=== PATIENT | female | born 1965 | race Caucasian/White ===

== ENCOUNTER 2020-07-21 08:22 | Emergency (ER) | payer BC ==
[2020-07-21] MEDS ORDERED: cefTRIAXone 2 GM in Sodium Chloride 0.9% 100 ML IV STA ×2 (09:59→10:24)
[2020-07-21] MEDS ORDERED: Doxycycline 100 MG Cap PO STA (10:00)
--- NOTE | 2020-07-21 10:04 | EDM.PDOC ---
ED HPI GENERAL MEDICAL PROBLEM - General Chief Complaint: Skin Complaint Stated Complaint: SKIN COMPLAINT/FEVER Time Seen by Provider: 07/21/20 09:02 Source of Information: Reports: Patient History Limitations: Reports: No Limitations - History of Present Illness INITIAL COMMENTS - FREE TEXT/NARRATIVE: Mrs. Chamberlain is a very pleasant 54-year-old woman with no chronic medical problems, who now presents the ED, sent over from the walk-in clinic, for a generalized rash and fever. She states that she was in [place] from 07/08/2020 through 07/15/2020. She lives in the [facility], but is down here for a wedding last night, and states that she woke this morning with a generalized erythematous rash with pustules. They are not painful or pruritic. No prior similar symptoms. She went to the walk-in clinic, where she was told that she had a fever of 104 degrees, and was sent here for evaluation. Here in the ED, the patient is found to be mildly tachycardic at 115 bpm, with a temperature of 101.8 degrees and an oxygen saturation of 90% on room air. Other than her rash and fever, the patient denies having a recent fever, chills, sore throat, ear pain, nasal or sinus congestion, cough, dyspnea, chest pain, palpitations, nausea, vomiting, constipation, diarrhea, abdominal pain, urinary symptoms, recent weight gain or weight loss, recent bloody bowel movements or black bowel movements, recent joint aches, headaches, or rashes. The patient does not have a PCP. Her Detective Chief is in the [facility]. - Related Data Allergies Allergy/AdvReac Type Severity Reaction Status Date / Time No Known Allergies Allergy Verified 07/21/20 08:33 Home Meds: Home Meds Doxycycline [Vibra-Tabs] 1 tab PO Q12HR #19 tab 07/21/20 [Rx] PARoxetine [Paxil] 10 mg PO DAILY 07/21/20 [History] Past Medical History - Past Surgical History Oncologic Surgical History: Reports: Other (See Below) (Left breast biopsy - benign) Social & Family History - Tobacco Use Smoking Status *Q: Never Smoker Second Hand Smoke Exposure: No - Caffeine Use Caffeine Use: Reports: None - Alcohol Use Alcohol Use History: Yes Alcohol Use Frequency: Socially - Recreational Drug Use Recreational Drug Use: No - Living Situation & Occupation Living situation: Reports: , with Spouse 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 ED EXAM, SKIN/RASH Exam: See Below Exam Limited By: No Limitations General Appearance: Alert, WD/WN, No Apparent Distress Eye Exam: Bilateral Eye: EOMI, Normal Inspection Ears: Normal External Exam, Hearing Grossly Normal Nose: Normal Inspection Throat/Mouth: Normal Inspection, Normal Lips, Normal Voice, No Airway Compromise Head: Atraumatic, Normocephalic Neck: Normal Inspection, Full Range of Motion Respiratory/Chest: No Respiratory Distress, Lungs Clear, Normal Breath Sounds, No Accessory Muscle Use Cardiovascular: Normal Peripheral Pulses, Regular Rate, Rhythm, No Edema, No Gallop, No JVD, No Murmur, No Rub Peripheral Pulses: 3+: Radial (L), Radial (R) GI/Abdominal: Normal Bowel Sounds, Soft, Non-Tender, No Organomegaly, No Distention, No Abnormal Bruit, No Mass (Female) Exam: Deferred Rectal (Female) Exam: Deferred Back Exam: Normal Inspection, Full Range of Motion, NT Extremities: Normal Inspection, Normal Range of Motion, No Pedal Edema, Normal Capillary Refill Neurological: Alert, Oriented, Normal Cognition, No Motor/Sensory Deficits Psychiatric: Normal Affect Skin: Warm (The patient does not feel febrile), Rash (Erythematous maculopapular rash noted on the face, neck, torso, and extremities, including the palms and soles. The minority of the lesions have pinhead purulent-appearing vesicles. The lesions on the face are weeping serous fluid, but this is not seen elsewhere.) Lymphatic: No Adenopathy Course - Vital Signs Last Recorded V/S: Last Vital Signs Temp 38.8 C H 07/21/20 08:31 Pulse 115 H 07/21/20 08:31 Resp 16 07/21/20 08:31 BP 107/85 07/21/20 08:31 Pulse Ox 90 L 07/21/20 08:31 - Orders/Labs/Meds Orders: Active Orders 24 hr Category Date Time Status CULTURE BLOOD [BC] Stat Lab 07/21/20 10:09 Received CULTURE BLOOD [BC] Stat Lab 07/21/20 10:16 Received [facility] SPOTTED FEVER, IGM [REF] Stat Lab 07/21/20 10:09 Received Blood Culture x2 Reflex Set [OM.PC] Stat Oth 07/21/20 09:55 Ordered Labs: Laboratory Tests 07/21/20 Range/Units 10:09 RPR Non-reactive (NONREACTIVE) Meds: Medications Discontinued Medications Generic Name Dose Route Start Last Admin Trade Name Bandar PRN Reason Stop Dose Admin Doxycycline Hyclate 100 mg 07/21/20 10:00 07/21/20 10:37 Vibramycin PO 07/21/20 10:01 100 mg ONETIME STA Administration Ceftriaxone Sodium 2 gm/ 100 mls @ 200 mls/hr 07/21/20 09:59 07/21/20 10:37 Sodium Chloride IV 07/21/20 10:28 Not Given ONETIME STA Ceftriaxone Sodium 2 gm/ 100 mls @ 200 mls/hr 07/21/20 10:24 07/21/20 10:38 Sodium Chloride IV 07/21/20 10:53 200 mls/hr ONETIME STA Administration - Re-Assessments/Exams Free Text/Narrative Re-Assessment/Exam: 07/21/20 10:00 Case discussed with Jo at [facility] at 09:41. Case then discussed with Dr. Rodriguez, Infectious Disease specialist at [facility] at 09:51. Dr. Rodriguez recommended that I check an RPR and a [place] Spotted Fever panel, and obtain 2 sets of blood cultures. Dr. Rodriguez recommended that I treat the patient with Rocephin and a 10-day course of doxycycline, for treatment of possible syphilis and [place] spotted fever, respectively. I checked with lab, and we can get the RPR back today, however, the only lab we have for [place] Spotted Fever is an IgM level, which is a send-out test. Although penicillin G benzathine is actually the drug of choice for treatment of syphilis, Dr. Rodriguez may have requested Rocephin to broaden coverage. I have ordered 2 g IV, along with 100 mg of oral doxycycline. 07/21/20 12:32 The patient's RPR has returned nonreactive. 07/21/20 12:36 Test results discussed with the patient. I will discharge her home with a prescription to complete a 10-day course of doxycycline 100 mg po BID. She will need to follow-up to check on the results of her RMSF IgM and blood cultures, as well as possible further evaluation or referral to a [facility]. I offered to refer her to our clinic, however, because she lives in [place], she would prefer to follow-up there. Departure - Departure Time of Disposition: 12:37 Disposition: Home, Self-Care 01 Condition: Good Clinical Impression: Diffuse papular rash, Fever - Discharge Information *PRESCRIPTION DRUG MONITORING PROGRAM REVIEWED*: Not Applicable *COPY OF PRESCRIPTION DRUG MONITORING REPORT IN PATIENT KYMBERLY: Not Applicable Prescriptions: Doxycycline [Vibra-Tabs] 1 tab PO Q12HR #19 tab Instructions: Rash, Adult, [id number] Referrals: PCP,None [Primary Care Provider] - Forms: ED Department Discharge Additional Instructions: You were seen in the emergency room after waking up with a fever and diffuse rash this morning, after recently visiting [place]. Your case was discussed with an Infectious Disease specialist at [facility], who recommended that we check an RPR (test for syphilis), a test for [place] Spotted Fever, as well as blood cultures. The RPR returned negative. The test for [place] Spotted Fever is a send out test, and the blood cultures take several days to incubate. In accordance with the recommendation by the Infectious Disease specialist, you were treated with a single dose of the antibiotic ceftriaxone (Rocephin) and started on the antibiotic doxycycline. A prescription for doxycycline has been sent to the [facility], located just south and across the [address] from [facility]. They will be open until 4:00 this afternoon. Take 1 tablet of doxycycline every 12 hours, starting this evening, Wednesday, , as prescribed. Finish the entire prescription unless told otherwise by a doctor. It is very important that you follow-up with a provider early this coming week to check on your lab test results. They may need to refer you to a [facility]. If any other problems, please do not hesitate to return to the ER. Sepsis Event Note (ED) - Evaluation Sepsis Screening Result: No Definite Risk - Focused Exam Vital Signs: Vital Signs Temp Pulse Resp BP Pulse Ox 07/21/20 08:31 38.8 C H 115 H 16 107/85 90 L - My Orders Last 24 Hours: My Active Orders 07/21/20 09:55 Blood Culture x2 Reflex Set [OM.PC] Stat 07/21/20 10:09 CULTURE BLOOD [BC] Stat [facility] SPOTTED FEVER, IGM [REF] Stat 07/21/20 10:16 CULTURE BLOOD [BC] Stat - Assessment/Plan Last 24 Hours: My Active Orders 07/21/20 09:55 Blood Culture x2 Reflex Set [SINGH] Stat 07/21/20 10:09 CULTURE BLOOD [BC] Stat [facility] SPOTTED FEVER, IGM [REF] Stat 07/21/20 10:16 CULTURE BLOOD [BC] Stat
== END 2020-07-21 13:07 | disposition home or self-care (01) ==
LOC: JD.ED 08:22
DX: R23.8 Other skin changes (principal); R50.9 Fever, unspecified; Z79.899 Other long term (current) drug therapy
CPT/HCPCS: 86592; 86757; 87040; 96365; 99283; A9270; J0696; J7050